=== PATIENT | female | born 1995 | race Caucasian/White ===

== ENCOUNTER 2020-02-29 08:52 | Outpatient (CLI) | payer OTHER, SELFPAY ==
--- NOTE | 2020-03-23 15:05 | WPDHOMESLEEP ---
Sleep Study - Home Unattended Date of Study: 02/27/20 Ordering Provider: Carolynn Strickland MD Interpreting Physician: Fina Sanchez MD Home Sleep Study Type: Apnea Link Air Height: 1.47 m Weight: 79.379 kg Body Mass Index: 36.6 [place]: 20 Reason for Sleep Study Hypersomnolence Sleep History Lavern Winn is a 24-year-old female 4 feet 10 iches tall weighing 175 lb with a body mass index of 36.5. She is always tired even if she sleeps a full night. She is tired when she wakes up. She does not have dreams any longer. She takes melatonin to help her improve her quality of sleep at night but it does not help. She has been told that she stops breathing at night. has witnessed apneas. She has a difficult time waking up in the morning. She has excessive daytime sleepiness. She constantly snores rarely loud enough that others complain about it. She frequently has had heartburn at night with belching and coughing but now takes medication which improves this symptom. She occasionally awakens from sleep feeling short of breath. She falls asleep unintentionally at times, waking 8 hours later. She rarely has trouble sleep with a. She does not wake up gasping for breath at night. She rarely has breathing proper films at night there by others. She occasionally sweats excessively at night, occasionally notices her heart pounding or beating irregularly at night. She freely falls asleep in the day, involuntarily, while driving and frequently during physical effort. she rarely has loss of muscle tone was drawn motion, constantly has daytime difficulties due to excessive sleepiness. She occasionally feels paralyzed on waking or falling asleep. She rarely has vivid dreamlike scenes upon awakening or falling asleep. She has never for a to go to sleep. She rarely has nightmares. She does not remember dreams. She occasionally has racing thoughts. She does not feel sad or depressed. She frequently has anxiety. She frequently has muscular tension. She does rarely notices parts of her body jerking. She does not kick at night but she hits with her arms frequently during the night. She occasionally has crawling and aching feelings in her legs. She constantly has leg pain at night. She rarely has morning jaw pain. She rarely grinds her teeth during sleep. She frequently is bothered by pain during the day, rarely is awakened by pain at night. She occasionally wakes up feeling stiff in the morning frequently with sore achy muscles frequently with pain in the neck and spine. She has dizziness, stomach problems, fatigue, memory problems, concentration difficulties, tremors and headaches. Normal bedtime is between nine and falling asleep within forty five once at night. She will go to the bathroom and get a drink of water because her throat is dry at night. She uses her phone at night to help her fall asleep again she does take naps. A short nap may or may not be refreshing. She is drowsy in the morning for 2 hours or longer. 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 metronidazole 250 mg twice a day Sleep Procedure This test was performed using 4 channel monitoring including respiratory effort channel, snoring channel, heart rate channel, and oxygen saturation channel. This study was scored using [facility] guidelines. Sleep Architecture Not applicable fo
[2020-03-23 15:29] VITALS: BMI 36.6
== END 2020-02-29 08:53 | disposition home or self-care (01) ==
LOC: ANHCSM 08:53
PROVIDERS: Visit Provider Family Medicine
DX: G47.30 Sleep apnea, unspecified (principal); G47.10 Hypersomnia, unspecified; Z87.891 Personal history of nicotine dependence; K21.9 Gastro-esophageal reflux disease without esophagitis
CPT/HCPCS: 95806

== ENCOUNTER 2021-02-12 12:32 | Outpatient (CLI) | payer OTHER, SELFPAY ==
--- NOTE | ~2021-02-12 | MMUS_ITS ---
EXAMINATION: MM diagnostic rupa BI w cici, US breast LT complete HISTORY: Left breast pain TECHNIQUE: Additional 3-D tomosynthesis images of the breasts were performed and synthetic 2-D images were generated. CAD analysis was submitted and interpreted. High resolution Limited left breast ultr asound was performed. COMPARISON: None BREAST PARENCHYMAL COMPOSITION: Breast composed of scattered areas of fibroglandular density. FINDINGS: MAMMOGRAPHIC FINDINGS: There are no suspicious masses, calcifications or architectural distortion in either breast to sugges t malignancy. ULTRASOUND: Limited left breast ultrasound: At 11:00, 4 cm from the nipple, there is heterogeneous hypoechoic sof t tissue, likely normal fibroglandular tissue rather than discrete mass. Short-term follow-up in 6 mo nths recommended. IMPRESSION: 1. Probable benign heterogeneous fibroglandular tissue at 11:00, 4 cm from the nipple. 2. Recommend 6 month follow-up left breast ultrasound BI-RADS category 3, probably benign findings. Reviewed, dictated and finalized at location A. IMPRESSION: 1. Probable benign heterogeneous fibroglandular tissue at 11:00, 4 cm from the nipple. 2. Recommend 6 month follow-up left breast ultrasound BI-RADS category 3, probably benign findings.
== END 2021-02-12 12:33 | disposition home or self-care (01) ==
LOC: ANHIMG 12:37
PROVIDERS: Visit Provider Physician Assistant
DX: R92.8 Other abnormal and inconclusive findings on diagnostic imaging of breast (principal)
CPT/HCPCS: 76641; 77062; 77066; G0279

== ENCOUNTER → 2021-05-25 00:34 | Outpatient (CLI) | payer OTHER, SELFPAY ==
[2021-05-25 22:39] LABS: SARS-CoV-2 RNA PCR Positive
== END ==
PROVIDERS: Visit Provider Internal Medicine Critical Care Medicine
DX: U07.1 COVID-19 (principal)
CPT/HCPCS: C9803; U0003; U0005

== ENCOUNTER 2021-06-12 15:05 | Outpatient (CLI) | payer OTHER, SELFPAY ==
[2021-06-12 15:49] LABS: Hematocrit 42.2 % (37.0-47.0); Hemoglobin 14.3 g/dL (12.0-15.0); Mean Corpuscular HGB Conc 33.9 g/dl (32-36); Mean Corpuscular Hemoglobin 29.8 pg (26-34); Mean Corpuscular Volume 87.9 fl (80-100); Mean Platelet Volume 10.1 fl (7.4-10.4); Platelet Count Result 242 k/mm3 (150-375); Red Cell Distribution Width 11.9 % (11.5-14.5); White Blood Count 6.1 K/mm3 (4.5-10.0)
[2021-06-12 16:27] LABS: Iron 192 ug/dL (37-170)
[2021-06-12 16:36] LABS: Percent Iron Saturation 50 % (20-50)
== END 2021-06-12 15:06 | disposition home or self-care (01) ==
LOC: ANHLAB 15:08
PROVIDERS: Visit Provider Nurse Practitioner Family
DX: R53.83 Other fatigue (principal)
CPT/HCPCS: 36415; 82607; 82728; 82746; 83540; 83550; 85027

== ENCOUNTER 2021-07-08 18:04 | Emergency (ER) | payer OTHER, SELFPAY ==
[2021-07-08 19:00] VITALS: BP 132/87; PULSE 86; RESP 18; TEMP 36.5; O2SAT 100
[2021-07-08 20:25] VITALS: BP 114/74; PULSE 78; RESP 17; TEMP 36.6; O2SAT 98
--- NOTE | 2021-07-08 23:00 | PC.NURSE ---
Seen leaving ER wr at 2230.
--- NOTE | 2021-07-08 23:00 | PC.NURSE ---
No answer when called for vitals recheck at 2300.
== END 2021-07-08 23:00 | disposition left against medical advice (07) ==
LOC: ANHED 23:06
DX: N93.9 Abnormal uterine and vaginal bleeding, unspecified (principal)
CPT/HCPCS: 99199

== ENCOUNTER → 2021-08-10 00:24 | Outpatient (CLI) | payer OTHER, SELFPAY ==
[2021-08-10 13:37] LABS: SARS-CoV-2 RNA PCR Negative
== END ==
PROVIDERS: Visit Provider Internal Medicine Critical Care Medicine
DX: Z01.812 Encounter for preprocedural laboratory examination (principal); Z20.822 Contact with and (suspected) exposure to COVID-19
CPT/HCPCS: C9803; U0003; U0005

== ENCOUNTER 2021-08-12 08:03 | Outpatient (CLI) | payer OTHER, SELFPAY ==
--- NOTE | 2021-08-19 15:22 | SLEEP_ITS ---
This report was moved to the correct visit, on 08/30/2021. Original report was signed by Em Hollins DO on 08/19/21 1529. Sleep Study Date of Study: 08/13/2021 Ordering Provider: Bradley Horn APRN Interpreting Physician: Em Hollins DO Sleep Study Type: Multiple Sleep Latency Test Height: 1.47 m Weight: 91.17 kg Body Mass Index: 42.2 Neck Circumference (inches): 16 [place]: 15 Reason for Sleep Study Unrefreshing sleep and daytime hypersomnia Sleep History Please see sleep history on previous report. 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 EEG leads, EOG leads, EMG (chin leads), and an EKG lead were present. Sleep Architecture Nap 1: Sleep Onset was 2 minutes 26 seconds. REM Sleep was not achieved. Nap 2: Sleep Onset was 38 seconds. REM Sleep was not achieved. Nap 3: Sleep Onset was 2 minutes 6 seconds. REM Sleep was not achieved. Nap 4: Sleep Onset was 58 seconds. REM Sleep was not achieved. Nap 5: Sleep Onset was 1 minute 34 seconds. REM Sleep was not achieved. The average sleep latency was 1 minute 32 seconds which is consistent with severe hypersomnia. No SOREMs (Sleep Onset REM) were seen. The patient was able to achieve a minimum of 6 hours of sleep on the preceding PSG. Respiratory Analysis N/A Arousals N/A Periodic Limb Movements N/A Oximetry Data N/A Snoring Profile N/A Cardiac Profile N/A EEG Profile EEG was normal and showed no signs of seizure activity. Assessment and Plan Assessment and Plan (1) Hypersomnolence: Onset Date: ~02/2020 Code(s): G47.10 - Hypersomnia, unspecified Status: Acute Assessment and Plan: The average sleep latency was 1 minute 32 seconds which is consistent with severe hypersomnia. No SOREMs (Sleep Onset REM) were seen. The patient was able to achieve a minimum of 6 hours of sleep on the preceding PSG. The PSG and MSLT results show severe hypersomnia, likely due to chronic sleep deprivation. Based on the patient's history, she gets a maximum of 5 hours of sleep on weekdays and 12+ hours of sleep on her days off. Her inconsistent sleep wake schedule and sleep deprivation during the week is likely contributing to her hypersomnia. The patient needs to try to get at least 7 hours of sleep on her work days. Her PSG showed that she spent 20.8% of total sleep time in Stage N3. While technically in normal range, this is commonly seen in patients who are making up sleep. 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 Sleep deprivation can also lead to car accidents due to driving while drowsy. Data The data obtained during
== END 2021-08-13 15:31 | disposition home or self-care (01) ==
LOC: ANHCSM 08:04
PROVIDERS: Visit Provider Nurse Practitioner Family
DX: G47.10 Hypersomnia, unspecified (principal)
CPT/HCPCS: 95805; 95810

== ENCOUNTER 2021-08-13 07:34 | Outpatient (CLI) | payer OTHER, SELFPAY ==
--- NOTE | 2021-08-19 13:52 | WPDSLEEPSTUD ---
Sleep Study Ordering Provider: Bradley Horn APRN Interpreting Physician: Em Hollins DO Sleep Study Type: Polysomnogram Reason for Sleep Study Unrefreshing sleep and daytime hypersomnia Sleep History The patient is a 25-year-old female with HSV, nicotine vaping and prediabetes that had a sleep study followed by MSLT ordered for evaluation of excessive daytime hypersomnia. 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 The patient states that if she tries to sleep 8 hours, she will wake up at least 3 times throughout the night. She states that her daytime hypersomnia improves with less sleep. The patient occasionally awakens from sleep short of breath. She constantly awakens at night with heartburn, belching or cough. She frequently snores loud enough that others complain. She constantly has trouble sleeping when she has a cold. She occasionally wakes up gasping for air throughout the night. She frequently has breathing problems at night observed by herself or others. She denies sweating excessively at night. She occasionally has heart palpitations or irregular heartbeats during the night. She constantly falls asleep during the day and occasionally falls asleep while driving. She rarely experiences loss of muscle tone when extremely emotional. She constantly has trouble at work due to sleepiness. She rarely feels unable to move while waking up or falling asleep. She frequently experiences vivid dreamlike scenes upon awakening or falling asleep. She occasionally feels afraid to fall asleep. She constantly has nightmares. She occasionally has thoughts racing through her mind. She rarely feels sad or depressed. She constantly has anxiety. She frequently notices parts of her body jerk. She rarely kicks during the night. She constantly has crawling and aching feelings in her legs and occasionally has leg pain during the night. She denies grinding her teeth during sleep and awakening with morning jaw pain. She is frequently bothered by pain during the day but denies being awakened by pain during the night. She denies waking up feeling stiff in the morning. She frequently wakes up with sore achy muscles. She frequently wakes up with pain in the neck, spine or other joints. She goes to bed between 10 and 11:00 p.m. on weekdays and between 9 and 10:00 p.m. on weekends. He takes her 20-30 minutes to fall asleep. She wakes up 2-3 times throughout the night. When she awakens, she will get up and use the restroom and then try to fall back asleep. She can fall back asleep within 10-15 minutes. She wakes up at 3:30 a.m. on the weekdays and between 10 and 11:00 a.m. on the weekends. She typically gets 5 hours of sleep per night. She will stay in bed for 1 hour after waking up in the morning. She currently lives with her and 2 children. She does not consume any caffeinated beverages within 2 hours of bedtime. She does not engage in physical exercise before bedtime. She denies reading and watching television before falling asleep. She will take naps in the afternoon or the evening and they are refreshing. She will drink 3 caffeinated beverages per day. She smokes an occasional cigarette. She currently vapes all throughout the day. She will drink 4 alcoholic beverages on the weekend. She denies recreational drug use. [facility] Past Medical History Medical History (Updated 08/19/21 @ 14:04 by Em Hollins DO) Gastroesophageal reflux disease Hypersomnolence (~02/2020) Pre-diabetes Social History Social History Social History: vapes daily, 1 cig/month Smoking packs per day: 0.25 Smoking cigarettes per day: 5.0 Years smoked: 11 Smoking pack-years: 2.75 Smoking status: Light tobacco smoker Tobacco type: e-cigarettes/vaping Additional smoking assessment comments: Patient uses Puff Bars, 1 every 2-3 days, type of e-cig nicotine delivery Alcohol use deta
--- NOTE | 2021-08-19 14:50 | WPDSLEEPSTUD ---
Sleep Study Date of Study: 08/13/2021 Ordering Provider: Bradley Horn APRN Interpreting Physician: Em Hollins DO Sleep Study Type: Multiple Sleep Latency Test Height: 1.47 m Weight: 91.17 kg Body Mass Index: 42.2 Neck Circumference (inches): 16 [place]: 15 Reason for Sleep Study Unrefreshing sleep and daytime hypersomnia Sleep History Please see sleep history on previous report. [facility] Past Medical History Medical History Gastroesophageal reflux disease Hypersomnolence (~02/2020) Pre-diabetes Social History Social History Social History: vapes daily, 1 cig/month Smoking packs per day: 0.25 Smoking cigarettes per day: 5.0 Years smoked: 11 Smoking pack-years: 2.75 Smoking status: Light tobacco smoker Tobacco type: e-cigarettes/vaping Additional smoking assessment comments: Patient uses Puff Bars, 1 every 2-3 days, type of e-cig nicotine delivery Alcohol use details: none currently Substance use: former Other substance usage details: ecstasy 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 EEG leads, EOG leads, EMG (chin leads), and an EKG lead were present. Sleep Architecture Nap 1: Sleep Onset was 2 minutes 26 seconds. REM Sleep was not achieved. Nap 2: Sleep Onset was 38 seconds. REM Sleep was not achieved. Nap 3: Sleep Onset was 2 minutes 6 seconds. REM Sleep was not achieved. Nap 4: Sleep Onset was 58 seconds. REM Sleep was not achieved. Nap 5: Sleep Onset was 1 minute 34 seconds. REM Sleep was not achieved. The average sleep latency was 1 minute 32 seconds which is consistent with severe hypersomnia. No SOREMs (Sleep Onset REM) were seen. The patient was able to achieve a minimum of 6 hours of sleep on the preceding PSG. Respiratory Analysis N/A Arousals N/A Periodic Limb Movements N/A Oximetry Data N/A Snoring Profile N/A Cardiac Profile N/A EEG Profile EEG was normal and showed no signs of seizure activity. Assessment and Plan Assessment and Plan (1) Hypersomnolence: Onset Date: ~02/2020 Code(s): G47.10 - Hypersomnia, unspecified Status: Acute Assessment and Plan: The average sleep latency was 1 minute 32 seconds which is consistent with severe hypersomnia. No SOREMs (Sleep Onset REM) were seen. The patient was able to achieve a minimum of 6 hours of sleep on the preceding PSG. The PSG and MSLT results show severe hypersomnia, likely due to chronic sleep deprivation. Based on the patient's history, she gets a maximum of 5 hours of sleep on weekdays and 12+ hours of sleep on her days off. Her inconsistent sleep wake schedule and sleep deprivation during the week is likely contributing to her hypersomnia. The patient needs to try to get at least 7 hours of sleep on her work days. Her PSG showed that she spent 20.8% of total sleep time in Stage N3. While technically in normal range, this is commonly seen in patients who are making up sleep. 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 Sleep deprivation can also lead to car accidents due to driving while drowsy. Data The data obtained during this sleep study is adequate for interpretation. Certification This sleep study has been reviewed by a board certified sleep medicine physician.
== END 2021-08-13 16:15 | disposition home or self-care (01) ==
LOC: ANHCSM 07:35
PROVIDERS: Visit Provider Nurse Practitioner Family
DX: G47.10 Hypersomnia, unspecified (principal)
CPT/HCPCS: 95805; 95810

== ENCOUNTER 2022-06-05 12:47 | Outpatient (CLI) | payer OTHER, SELFPAY ==
--- NOTE | ~2022-06-05 | US_ITS ---
EXAMINATION: US pelvic complete w TV DATE: 06/05/2022 13:57 INDICATION: Polycystic ovary syndrome. TECHNIQUE: Multiple transabdominal and transvaginal sonographic images of the pelvis were obtained. COMPARISON: None. FINDINGS: TRANSABDOMINAL ULTRASOUND: The uterus measures 10.0 x 4.5 x 7.1 cm. There is no free fluid in the pelvis. TRANSVAGINAL ULTRASOUND: The endometrial complex measures 11 mm in thickness. There are nabothian cysts in the cervix. The rig ht ovary measures 3.6 x 2.1 x 2.0 cm. The left ovary measures 3.7 x 2.3 x 2.4 cm. There is normal vas cular flow in the ovaries. IMPRESSION: 1. Normal ovaries. Reviewed, dictated and finalized at location A. ENT SERVICE REP IMPRESSION: 1. Normal ovaries.
== END 2022-06-05 12:48 | disposition home or self-care (01) ==
LOC: ANHIMG 12:51
PROVIDERS: PCP Physician Assistant; Visit Provider Physician Assistant
DX: E28.2 Polycystic ovarian syndrome (principal)
CPT/HCPCS: 76830; 76856

== ENCOUNTER 2023-03-02 08:31 | Outpatient (CLI) | payer OTHER, SELFPAY ==
--- NOTE | ~2023-03-02 | US_ITS ---
Limited Abdominal Sonogram: Real-time sonographic imaging of the right upper quadrant was performed. Clinical History: Abnormal liver enzyme levels Findings: The liver appears echogenic, with no evidence of mass lesion or bile duct dilatation. Main portal vein is patent, normal direction of flow. The gallbladder is well distended, and contains sma ll amount of sludge/debris. The common bile duct measures 3 mm. The visualized pancreas, aorta, and IVC are unremarkable. Impression: Small amount of gallbladder sludge/debris. Diffuse fatty infiltration of liver. Reviewed, dictated and finalized at location M. Impression: Small amount of gallbladder sludge/debris. Diffuse fatty infiltration of liver.
== END 2023-03-02 08:32 | disposition home or self-care (01) ==
PROVIDERS: PCP Physician Assistant; Visit Provider Physician Assistant
DX: R74.01 Elevation of levels of liver transaminase levels (principal); K76.0 Fatty (change of) liver, not elsewhere classified
CPT/HCPCS: 76705

== ENCOUNTER 2023-06-25 15:05 | Emergency (ER) | payer OTHER, SELFPAY ==
--- NOTE | ~2023-06-25 | XR_ITS ---
EXAMINATION: XR foot LT min 3V DATE: 06/25/2023 15:58 INDICATION: Left foot pain TECHNIQUE: Dorsoplantar, lateral, and 2 oblique views of the left foot were obtained. COMPARISON: None. FINDINGS: No fracture, dislocation, or subluxation. The bones, soft tissues, and joint spaces are nor mal. IMPRESSION: 1. No acute osseous abnormality. Reviewed, dictated and finalized at location L. OCCUPATIONAL
--- NOTE | ~2023-06-25 | XR_ITS ---
EXAMINATION: XR ankle LT min 3V DATE: 06/25/2023 15:58 INDICATION: Left ankle pain TECHNIQUE: Anteroposterior, lateral, mortise, and additional oblique view of the ankle were obtained. COMPARISON: None. FINDINGS: No fracture, dislocation, or subluxation. The bones, soft tissues, and joint spaces are nor mal. IMPRESSION: 1. No acute osseous abnormality. Reviewed, dictated and finalized at location L. 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
--- NOTE | 2023-06-25 15:07 | ED.FALL ---
HPI - Fall General Chief Complaint: Fall Stated Complaint: Fall Time Seen by Provider: 06/25/23 15:07 Source: patient Mode of arrival: ambulatory Limitations: no limitations History of Present Illness HPI Narrative: Patient is a 27-year-old female who presents with right great toe and right ankle pain after hitting toe on a piece of wood and then falling forward. Denies any other injury with fall forward. Denies hitting her head. Denies any numbness, tingling or weakness. Patient is still able to ambulate normally. Related Data Home Medications Medication Instructions Recorded Confirmed metformin 500 mg tablet,extended 500 mg PO DAILY 06/25/23 06/25/23 release 24 hr Allergies Allergy/AdvReac Type Severity Reaction Status Date / Time No Known Allergies Allergy Unknown Verified 06/25/23 15:45 Review of Systems Review of Systems: All systems reviewed & are unremarkable except as noted in HPI and below Constitutional: Constitutional: Denies body ache(s), Denies chills, Denies fatigue, Denies fever(s), Denies headache(s), Denies malaise and Denies weakness Eyes: Eyes: Denies blurry vision, Denies irritation and Denies loss of vision ENT: Denies otalgia, Denies headache(s), Denies nasal discharge, Denies sinus pain and Denies sore throat Cardiovascular: Cardiovascular: Denies chest pain, Denies irregular heart rhythm and Denies dyspnea Respiratory: Respiratory: Denies dyspnea Gastrointestinal: Gastrointestinal: Denies abdominal pain, Denies melena, Denies hematochezia, Denies diarrhea, Denies nausea and Denies vomiting Musculoskeletal: Musculoskeletal: Denies back pain, Denies myalgias and Reports arthralgias Integumentary/Breasts: Skin/Breast: Denies pruritus and Denies rash Neurologic: Denies headache(s), Denies loss of vision and Denies weakness Psychiatric: Psychiatric: Reports no additional psychiatric complaints Endocrine: Endocrine: Denies fatigue PMFSH Past Medical History Medical History delivery delivered Gastroesophageal reflux disease Hypersomnolence (~02/2020) Pre-diabetes Family History Family History Mother Asthma Sibling Asthma Depression Hypertension Social History Social History Social History: vapes daily, 1 cig/month Smoking packs per day: 0.25 Smoking cigarettes per day: 5.0 Years smoked: 11 Smoking pack-years: 2.75 Smoking status: Never smoker Tobacco type: e-cigarettes/vaping Additional smoking assessment comments: Patient uses Puff Bars, 1 every 2-3 days, type of e-cig nicotine delivery Alcohol use details: none currently Substance use: former Other substance usage details: ecstasy Living arrangements: with family Occupation/Education: occupation 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 There is no relevant family history pertinent to the presenting complaint. Exam Const: General: cooperative, healthy appearing, comfortable, no acute distress and well nourished Nutritional Appearance: well nourished Orientation/consciousness: patient oriented x3 Limitations: no limitations HENMT: Head: normal to inspection, normocephalic and atraumatic Ears: hearing grossly normal bilaterally and external ears normal Face/Nose/Sinus: Normal external nose present, normal facial exam and face symmetric Face and sinus: normal facial exam and face symmetric Mouth: Yes lip normal Eyes: General: appearance normal, both eyes and all related structures Alignment and Position: alignment normal and position normal Periorbital: periorbital findings normal Eyelids: eyelids normal Pupils: Equal, round and reactive pupils present EOM: EOMs intact bilaterally Neck: Neck:
[2023-06-25 15:20] VITALS: BP 117/67; PULSE 67; RESP 18; TEMP 36.8; O2SAT 100
== END 2023-06-25 16:23 | disposition home or self-care (01) ==
PROVIDERS: Emergency Provider Nurse Practitioner Family; PCP Physician Assistant
DX: S93.402A Sprain of unspecified ligament of left ankle, initial encounter (principal); S90.112A Contusion of left great toe without damage to nail, initial encounter; F17.210 Nicotine dependence, cigarettes, uncomplicated; Z79.84 Long term (current) use of oral hypoglycemic drugs; W22.03XA Walked into furniture, initial encounter
CPT/HCPCS: 73610; 73630; 99213; G0463

== ENCOUNTER 2023-10-06 09:53 | Outpatient (CLI) | payer OTHER, SELFPAY | END 2023-10-06 09:54 | disposition home or self-care (01) | LOC: ANHAUDIO 09:53 | PROVIDERS: PCP Physician Assistant; Visit Provider Emergency Medicine | DX: H93.19 Tinnitus, unspecified ear (principal); H90.3 Sensorineural hearing loss, bilateral | CPT/HCPCS: 92557; 92567 ==

== ENCOUNTER 2023-12-11 23:26 | Emergency (ER) | payer OTHER, SELFPAY ==
--- NOTE | ~2023-12-11 | XR_ITS ---
XR foot RT min 3V 12/12/2023 00:13 INDICATION: Right foot pain PROCEDURE: 3 views right foot COMPARISON: No prior studies for comparison. FINDINGS: Fracture, dislocation or subluxation is not identified. The soft tissues appear within norm al limits. Small radiodensity lateral to the fifth metatarsal may represent a foreign body. IMPRESSION: 1: NO ACUTE BONE OR JOINT ABNORMALITY IDENTIFIED. 2: Small radiodensity lateral to the fifth metatarsal, suspicious for foreign body. Reviewed, dictated and finalized at location B. IMPRESSION: 1: NO ACUTE BONE OR JOINT ABNORMALITY IDENTIFIED. 2: Small radiodensity lateral to the fifth metatarsal, suspicious for foreign b karishma.
[2023-12-11 23:34] VITALS: BP 134/89; PULSE 57; RESP 14; TEMP 36.8; O2SAT 100
--- NOTE | 2023-12-12 04:18 | ED.LOWEXIN ---
HPI - Extremity Injury (Lower) General Chief Complaint: Extremity Injury, Lower Stated Complaint: Right foot injury, glass Time Seen by Provider: 12/12/23 04:04 Source: patient Mode of arrival: ambulatory Limitations: no limitations History of Present Illness HPI Narrative: Patient had some/adductor and presents with a laceration on her foot. Unknown last tetanus. She is experiencing a burning pain and numbness in the dorsal aspect of her great toe. Related Data Home Medications Medication Instructions Recorded Confirmed metformin 500 mg tablet,extended 500 mg PO DAILY 06/25/23 06/25/23 release 24 hr Allergies Allergy/AdvReac Type Severity Reaction Status Date / Time No Known Allergies Allergy Unknown Verified 06/25/23 15:45 PMF Past Medical History Medical History delivery delivered Gastroesophageal reflux disease Hypersomnolence (~02/2020) Pre-diabetes Family History Family History Mother Asthma Sibling Asthma Depression Hypertension Social History Social History Social History: vapes daily, 1 cig/month Smoking packs per day: 0.25 Smoking cigarettes per day: 5.0 Years smoked: 11 Smoking pack-years: 2.75 Smoking status: Never smoker Tobacco type: e-cigarettes/vaping Additional smoking assessment comments: Patient uses Puff Bars, 1 every 2-3 days, type of e-cig nicotine delivery Alcohol use details: none currently Substance use: former Other substance usage details: ecstasy Living arrangements: with family Occupation/Education: occupation 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 HEAD: Normocephalic, atraumatic. EYES: Non injected, non icteric ENT: Nares clear, no rhinorrhea or epistaxis. NECK: Supple. CHEST: Speaking in full sentences. No respiratory distress. HEART: Regular rate and rhythm. Extremities warm and well perfused. Brisk capillary refill in the great toe. ABDOMEN: Soft, nondistended. EXTREMITIES: Normal range of motion. No edema. SKIN: Warm, dry. 1 cm laceration at the dorsum of the foot distal 3rd of the foot proximal to the 1st toe. Superficial. No palpable foreign body with palpation. NEURO: Alert and oriented x3. Patient experiences some pain with dorsal /plantar flexion of great toe PSYCH: Normal mood and affect. Course Vital Signs Vital signs: Vital Signs Temperature 98.2 F 12/11/23 23:34 Pulse Rate 57 L 12/11/23 23:34 Respiratory Rate 14 12/11/23 23:34 Blood Pressure 134/89 12/11/23 23:34 Pulse Oximetry 100 12/11/23 23:34 Oxygen Delivery Room Air 12/11/23 23:34 Temperature 98.2 F 12/11/23 23:34 Pulse Rate 63 12/12/23 04:40 Respiratory Rate 15 12/12/23 04:40 Blood Pressure 132/60 12/12/23 04:40 Pulse Oximetry 100 12/12/23 04:40 Oxygen Delivery Room Air 12/11/23 23:34 MDM - Extremity Injury (Lower) MDM Narrative Medical decision making narrative: Patient presents with injury to her right foot where there is a small laceration. No palpable foreign body on physical exam although imaging is suspicious for 1. Point of care ultrasound is performed at bedside by myself which does not demonstrate an appreciable foreign body along dorsum of foot. Nerve sheath is seen in both views. Unknown last tetanus of this updated. Patient provided with analgesia. Discharged in stable condition. Imaging Data My impression: There appears to be a lucency near the area of patient's injury Discharge Plan Discharge Clinical Impression: Laceration of dorsum of right foot Patient Disposition: Home, Self-Care Condition: Stable Instructions: Antibiotic Form, Laceration (DC) Additional Instructions: Her tetanus shot w
[2023-12-12] MEDS: HYDROcodone/acetaminophen (*CRX) 5-325 MG TABLET 1 TAB PO (04:33)
[2023-12-12] MEDS: BACITRACIN OINTMENT 15 GM TUBE 1 APPLIC TOPICAL (04:34)
[2023-12-12] MEDS: TETANUS,DIPHTHERIA,AC PERTUSSIS ADULT (0.5 ML) BOOSTRIX IM (04:34)
[2023-12-12 04:40] VITALS: BP 132/60; PULSE 63; RESP 15; O2SAT 100
== END 2023-12-12 04:41 | disposition home or self-care (01) ==
PROVIDERS: Emergency Provider Student in an Organized Health Care Education/Training Program; PCP Physician Assistant
DX: S91.311A Laceration without foreign body, right foot, initial encounter (principal); W25.XXXA Contact with sharp glass, initial encounter; K21.9 Gastro-esophageal reflux disease without esophagitis; F17.290 Nicotine dependence, other tobacco product, uncomplicated; Z23 Encounter for immunization
CPT/HCPCS: 73630; 90471; 90715; 99283; A9270